=== PATIENT | female | born 1990 | race Caucasian/White ===

== ENCOUNTER 2024-08-02 16:38 | Emergency (ER) | payer OTHER, SELFPAY ==
[2024-08-02 17:01] VITALS: BP 128/79; PULSE 65; RESP 16; TEMP 37; O2SAT 100; BMI 20.7
--- NOTE | 2024-08-02 20:38 | ED.HEATRA ---
HPI - Head Injury General Chief complaint: Head Injury Stated complaint: Head injury on Thursday sent by JOSE Portillo Time Seen by Provider: 08/02/24 20:16 Source: patient Mode of arrival: Ambulatory History of Present Illness HPI Narrative: 34-year-old female with previous history of concussion (required several months of concussion rehab) presents by private vehicle from home for right-sided scalp pain and neck pain after head injury 3 days ago. Patient states that she was bending over to put groceries in her Fridge when her dogs marked, starting her. She went to straighten up to see what the dogs barking out when she struck her head against the freezer door. She denies loss of consciousness, denies use of blood thinners. She states she has had persistent low-grade headache and nausea since her injury. She called her nursing advice line today and she was referred to the emergency department for repeat evaluation. Has been taking Advil and Excedrin with moderate relief of headache. Denies vision changes, neck stiffness, worst headache of life, other complaints at this time Related Data Previous Rx's Medication Instructions Recorded methocarbamol 500 mg tablet 500 mg PO TID #30 tabs 08/02/24 ondansetron 4 mg disintegrating 4 mg PO Q8H PRN nausea and 08/02/24 tablet vomiting #30 tabs Allergies Allergy/AdvReac Type Severity Reaction Status Date / Time No Known Drug Allergies Allergy Verified 08/02/24 17:06 Patient History Social History Smoking Status: Never smoker Smoking Status: Never smoker Substance Use Type: does not use Exam Initial Vital Signs Initial Vital Signs: Vital Signs Temperature 98.6 F 08/02/24 17:01 Pulse Rate 65 08/02/24 17:01 Respiratory Rate 16 08/02/24 17:01 Blood Pressure 128/79 08/02/24 17:01 Pulse Oximetry 100 08/02/24 17:01 Oxygen Delivery Method Room Air 08/02/24 17:01 Const: Awake, alert, no acute distress, nontoxic appearing HEENT: No step-offs, PERRLA, EOMI, TM normal bilaterally, no midline neck tenderness Cardiac: regular rate, regular rhythm RESP: unlabored, clear bilaterally, no wheezing GI: Soft, nontender, nondistended, no rebound, no guarding Skin: Warm, Dry, intact, no rashes Neuro: AO x3, CN II-XII grossly intact, moves all extremities Course Orders Ordered: Discontinued Medications Cyclobenzaprine HCl (Cyclobenzaprine 10 Mg Prepack) 1 bottle MISC DIRECTED ONE Stop: 08/02/24 20:40 Last Admin: 08/02/24 20:43 Dose: 1 bottle Documented By: HNG Vital Signs Vital signs: Vital Signs - 8 hr 08/02/24 17:01 Temperature 98.6 F Pulse Rate 65 Respiratory Rate 16 Blood Pressure 128/79 Pulse Oximetry 100 Oxygen Delivery Method Room Air MDM - Head Injury Differential Diagnosis Differential diagnosis: Likely concussion without loss of consciousness, closed head injury and postconcussion syndrome MDM Narrative Medical decision making narrative: Well-appearing patient with persistent headache after minor head injury 3 days ago. Patient does have previous history of significant concussions requiring rehab. Physical exam is unremarkable, no indications of underlying trauma at this time. [place] and [place] head CT rules negative, no indication for advanced imaging at this time. Patient counseled to continue to take Tylenol and ibuprofen as needed for discomfort, she may apply ice as needed to areas of swelling, and she should utilize gentle stretching exercises for her neck to help with muscle stiffness. PCP follow up advised. Discharge Plan Departure Patient Disposition: Home Clinical Impression: Concussion without loss of consciousness Instructions: DI for Closed Head Injury Activity Restrictions/Additional Instructions: Avoid bright lights, loud noises, screens, any significant mentally stimulating activities until your symptoms improve. Take Tylenol and ibuprofen as needed for pain. You may apply heat or ice as needed to your neck for comfort. A short course of muscle relaxers has been sent to your pharmacy. Avoid alcohol or driving with these medications as they may cause drowsiness. Do not combine the methocarbamol with the cyclobenzaprine. Prescriptions: New ondansetron 4 mg tablet,disintegrating 4 mg PO Q8H PRN (Reason: nausea and vomiting) Qty: 30 0RF methocarbamol 500 mg tablet 500 mg PO TID Qty: 30 0RF Referrals: ProviderBandar [Primary Care Provider] - Stand Alone Forms: Patient Portal/API/Survey, Work Release Note
[2024-08-02 20:43] VITALS: BP 128/86; PULSE 67; RESP 18; O2SAT 99
[2024-08-02] MEDS: CYCLOBENZAPRINE 10 MG PREPACK 1 BOTTLE MISC (20:43)
== END 2024-08-02 20:48 | disposition home or self-care (01) ==
PROVIDERS: Emergency Provider Emergency Medicine
DX: S06.0X0A Concussion without loss of consciousness, initial encounter (principal); M54.2 Cervicalgia; W22.8XXA Striking against or struck by other objects, initial encounter
CPT/HCPCS: 99281; 99283

== ENCOUNTER 2024-08-05 11:43 | Emergency (ER) | payer OTHER, SELFPAY ==
[2024-08-05 11:47] VITALS: BP 124/74; PULSE 66; RESP 12; TEMP 36.4; O2SAT 99; BMI 20.7
[2024-08-05 12:32] LABS: Add Manual Diff / Slide Review NO; Basophils Absolute Auto 0 /uL (0-100); Basophils Percent Auto 0.8 % (0-2); Eosinophils Absolute Auto 300 /uL (0-450); Eosinophils Percent Auto 5.6 % (2-4); Hematocrit 39.6 % (36-46); Hemoglobin 13.4 g/dL (12.0-16.0); Lymphocytes Absolute Auto 1100 /uL (1100-4500); Mean Corpuscular HGB Conc 33.9 % (30-36); Mean Corpuscular Volume 94.6 fL (80-100); Monocytes Absolute Auto 300 /uL (0-900); Monocytes Percent Auto 7.7 % (3-14); Neutrophils Absolute Auto 2800 /uL (1500-7000); Neutrophils Percent Auto 60.9 % (50-75); Platelet Count 287 X10^3/uL (150-400); Red Blood Cell Count 4.19 X10^6/uL (4.0-5.2); Red Cell Distribution Width 13.2 % (11.6-14.8); White Blood Cell Count 4.6 X10^3/uL (4.5-11.0)
[2024-08-05 12:43] LABS: Alanine Aminotransferase 17 IU/L (<35); Albumin 4.6 g/dL (3.5-5.0); Albumin Globulin Ratio 1.6 (1.0-2.8); Alkaline Phosphatase 56 U/L (38-126); Aspartate Aminotransferase 26 IU/L (14-36); BUN Creatinine Ratio 6.8 (6-22); Bilirubin Total 0.9 mg/dL (0.2-1.3); Blood Urea Nitrogen 5 mg/dL (7-17); Calcium 9.1 mg/dL (8.4-10.2); Carbon Dioxide 25 mmol/L (22-32); Chloride 106 mmol/L (98-107); Estimated Glomerular Filt Rate > 60 mL/min (>60); Globulin 2.9 g/dL (1.7-4.1); Glucose 98 mg/dL (70-100); HEMOLYSIS < 15 (0-50); Potassium 3.7 mmol/L (3.4-5.1); Sodium 139 mmol/L (137-145); Total Protein 7.5 g/dL (6.3-8.2)
--- NOTE | 2024-08-05 12:55 | ED.RECABL ---
HPI - Recheck/Abnormal Lab/Rx <Danish Hicks PA-C - Last Filed: 08/05/24 13:07> General Chief Complaint: Recheck/Abnormal Lab/Rx Stated Complaint: tingling/numbness on both feet/hands Time Seen by Provider: 08/05/24 11:48 Source: patient Mode of arrival: Ambulatory History of Present Illness HPI narrative: This patient is an otherwise healthy 5 seen at this facility 2-3 days ago after her contusing her scalp when she was startled by her dogs. She apparently contused the superior aspect of her scalp on a drawer at home. There was no LOC/AMS, dysphagia, blurred vision, neck pain, chest pain or shortness of breath. Apparently, the patient has been experiencing subjective paresthesias to the feet and hands. This apparently had an onset of yesterday. No treatments have been tried for this. 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 Patient also denies night sweats, fever, chills or recent illness. The patient apparently had a remote C3-5 fracture approximately 16 years ago which required, ?concussion therapy ?and the patient is possibly experiencing signs and symptoms of anxiety related to that previous traumatic injury. Related Data Previous Rx's Medication Instructions Recorded methocarbamol 500 mg tablet 500 mg PO TID #30 tabs 08/02/24 ondansetron 4 mg disintegrating 4 mg PO Q8H PRN nausea and 08/02/24 tablet vomiting #30 tabs Allergies Allergy/AdvReac Type Severity Reaction Status Date / Time No Known Drug Allergies Allergy Verified 08/02/24 17:06 Review of Systems <Danish Hicks PA-C - Last Filed: 08/05/24 13:07> Review of Systems Narrative: General: See HPI Neuro: See HPI All other review of systems have been reviewed and are ultimately negative unless otherwise stated in the HPI Patient History <Danish Hicks PA-C - Last Filed: 08/05/24 13:07> Social History Smoking Status: Never smoker Smoking Status: Never smoker alcohol intake frequency: holidays/special occasions only Substance Use Type: does not use Exam <Danish Hicks PA-C - Last Filed: 08/05/24 13:07> Initial Vital Signs Initial Vital Signs: Vital Signs Temperature 97.5 F L 08/05/24 11:47 Pulse Rate 66 08/05/24 11:47 Respiratory Rate 12 08/05/24 11:47 Blood Pressure 124/74 08/05/24 11:47 Pulse Oximetry 99 08/05/24 11:47 Oxygen Delivery Method Room Air 08/05/24 11:47 Const General: cooperative, healthy appearing, comfortable, well developed and well groomed Nutritional Appearance: well nourished [facility] Head: normal to inspection, normocephalic and atraumatic Ears: hearing grossly normal bilaterally, external ears normal, TM's normal bilaterally and EAC's normal Nose: external nose normal and nares normal Face and sinus: normal facial exam and face symmetric Mouth: oral mucosae normal, lip normal and tongue normal Throat: posterior oropharynx normal Eyes General: Yes appearance normal, both eyes and all related structures Visual Bell: normal visual bell by confrontation Alignment and Position: alignment normal and position normal Periorbital: periorbital findings normal Eyelids: eyelids normal Conjunctivae: conjunctivae normal Sclera: sclerae normal Cornea: corneas normal Pupils: PERRL, normal by confrontation and accommodation normal EOM: EOM intact bilaterally Neck Neck: normal visual inspection, full ROM, no meningeal signs, trachea midline and supple Resp Effort & Inspection: normal respiratory effort and able to speak in complete sentences Auscultation: clear to auscultation bilaterally Cardio Rate: regular rate Rhythm: regular rhythm Heart Sounds: S1 normal and S2 normal Back/Spine/Pelvis Back: normal to inspection, back tenderness and crepitance Cervical Spine: normal cervical lordosis and cervical ROM normal Thoracic/Lumbar Spine: thoracic and lumbar spine normal to inspection and thoraco-lumbar ROM normal Skin General: no rashes or lesions noted, elasticity normal and turgor normal Neuro General: patient alert, patient awake, patient oriented x3, gait normal, moves all extremities and CN's II-XI intact bilaterally Speech: speech normal Extrem General: normal to inspection, full ROM, capillary refill normal, normal exam except as noted, no joint enlargement, no clubbing, cyanosis or edema and no pedal edema Psych Appearance: grossly normal and well kempt Mental Status: mental status grossly normal Speech and Movement: speech and movement normal Mood: congruent mood Affect: normal affect Attitude: cooperative Thought Process: normal Thought Content: normal Judgment: judgment good <Pantera Chávez DO - Last Filed: 08/05/24 13:53> Initial Vital Signs Initial Vital Signs: Vital Signs Temperature 97.5 F L 08/05/24 11:47 Pulse Rate 66 08/05/24 11:47 Respiratory Rate 12 08/05/24 11:47 Blood Pressure 124/74 08/05/24 11:47 Pulse Oximetry 99 08/05/24 11:47 Oxygen Delivery Method Room Air 08/05/24 11:47 Course <Danish Hicks PA-C - Last Filed: 08/05/24 13:07> Course Course Narrative: Patient was seen and examined. She had labs ordered which included a CBC, CMP magnesium level. None of these revealed any gross abnormalities. And notified the patient of the results and she was then prepped for discharge home. In conclusion, I do not believe this is hypomagnesemia, hypokalemia or any other metabolic disturbance. This could be stress versus anxiety related from her remote injury 16 years ago. The patient has minimal trauma does not require a CT scan or higher level imaging. She would benefit from outpatient follow up from Neurology if this continues. I do not believe this is a skull fracture, cervical fracture or intracranial bleed. Patient understands the treatment plan. There were no additional questions at the time of discharge and she will follow up as requested Orders Ordered: ED Orders 08/05/24 12:17 CBC Auto Diff [Complete Blood Count AUTO DIFF] Stat CMP [Comprehensive Metabolic Panel] Stat Magnesium Stat Vital Signs Vital signs: Vital Signs - 8 hr 08/05/24 11:47 08/05/24 13:26 Temperature 97.5 F L Pulse Rate 66 Respiratory Rate 12 17 Blood Pressure 124/74 Pulse Oximetry 99 Oxygen Delivery Method Room Air <Pantera Chávez DO - Last Filed: 08/05/24 13:53> Orders Ordered: ED Orders 08/05/24 12:17 CBC Auto Diff [Complete Blood Count AUTO DIFF] Stat CMP [Comprehensive Metabolic Panel] Stat Magnesium Stat Vital Signs Vital signs: Vital Signs - 8 hr 08/05/24 11:47 08/05/24 13:26 Temperature 97.5 F L Pulse Rate 66 Respiratory Rate 12 17 Blood Pressure 124/74 Pulse Oximetry 99 Oxygen Delivery Method Room Air MDM - Recheck/Abnormal Lab/Rx <Danish Hicks PA-C - Last Filed: 08/05/24 13:07> Differential Diagnosis Differential diagnosis: Likely other (See above) Medical Records Attestation: I reviewed the patient's medical records. Lab Data Attestation: I reviewed the patient's lab results. 08/05/24 12:17 08/05/24 12:17 Labs: Lab Results 08/05/24 Range/Units 12:17 WBC 4.6 (4.5-11.0) X10^3/uL RBC 4.19 (4.0-5.2) X10^6/uL Hgb 13.4 (12.0-16.0) g/dL Hct 39.6 (36-46) % MCV 94.6 (80-100) fL MCH 32.0 (26-34) PG MCHC 33.9 (30-36) % RDW 13.2 (11.6-14.8) % Plt Count 287 (150-400) X10^3/uL Neut % (Auto) 60.9 (50-75) % Lymph % (Auto) 25.0 (25-40) % [place] % (Auto) 7.7 (3-14) % Eos % (Auto) 5.6 H (2-4) % Baso % (Auto) 0.8 (0-2) % Neut # (Auto) 2800 (7195-3225) /uL Lymph # (Auto) 1100 (2057-4028) /uL [place] # (Auto) 300 (0-900) /uL Eos # (Auto) 300 (0-450) /uL Baso # (Auto) 0 (0-100) /uL Sodium 139 (137-145) mmol/L Potassium 3.7 (3.4-5.1) mmol/L Chloride 106 (98-107) mmol/L Carbon Dioxide 25 (22-32) mmol/L BUN 5 L (7-17) mg/dL Creatinine 0.73 (0.52-1.04) mg/dL Estimated GFR > 60 (>60) mL/min BUN/Creatinine Ratio 6.8 (6-22) Glucose 98 (70-100) mg/dL Calcium 9.1 (8.4-10.2) mg/dL Magnesium 2.0 (1.6-2.3) mg/dL Total Bilirubin 0.9 (0.2-1.3) mg/dL AST 26 (14-36) IU/L ALT 17 (<35) IU/L Alkaline Phosphatase 56 (38-126) U/L Total Protein 7.5 (6.3-8.2) g/dL Albumin 4.6 (3.5-5.0) g/dL Globulin 2.9 (1.7-4.1) g/dL Albumin/Globulin Ratio 1.6 (1.0-2.8) <Pantera Chávez, - Last Filed: 08/05/24 13:53> Lab Data Labs: Lab Results 08/05/24 Range/Units 12:17 WBC 4.6 (4.5-11.0) X10^3/uL RBC 4.19 (4.0-5.2) X10^6/uL Hgb 13.4 (12.0-16.0) g/dL Hct 39.6 (36-46) % MCV 94.6 (80-100) fL MCH 32.0 (26-34) PG MCHC 33.9 (30-36) % RDW 13.2 (11.6-14.8) % Plt Count 287 (150-400) X10^3/uL Neut % (Auto) 60.9 (50-75) % Lymph % (Auto) 25.0 (25-40) % [place] % (Auto) 7.7 (3-14) % Eos % (Auto) 5.6 H (2-4) % Baso % (Auto) 0.8 (0-2) % Neut # (Auto) 2800 (8461-4249) /uL Lymph # (Auto) 1100 (7164-3313) /uL [place] # (Auto) 300 (0-900) /uL Eos # (Auto) 300 (0-450) /uL Baso # (Auto) 0 (0-100) /uL Sodium 139 (137-145) mmol/L Potassium 3.7 (3.4-5.1) mmol/L Chloride 106 (98-107) mmol/L Carbon Dioxide 25 (22-32) mmol/L BUN 5 L (7-17) mg/dL Creatinine 0.73 (0.52-1.04) mg/dL Estimated GFR > 60 (>60) mL/min BUN/Creatinine Ratio 6.8 (6-22) Glucose 98 (70-100) mg/dL Calcium 9.1 (8.4-10.2) mg/dL Magnesium 2.0 (1.6-2.3) mg/dL Total Bilirubin 0.9 (0.2-1.3) mg/dL AST 26 (14-36) IU/L ALT 17 (<35) IU/L Alkaline Phosphatase 56 (38-126) U/L Total Protein 7.5 (6.3-8.2) g/dL Albumin 4.6 (3.5-5.0) g/dL Globulin 2.9 (1.7-4.1) g/dL Albumin/Globulin Ratio 1.6 (1.0-2.8) Discharge Plan Departure Patient Disposition: Home Clinical Impression: Complaint of paresthesia Activity Restrictions/Additional Instructions: Your labs were all within normal limits at today's ER visit You may require evaluation by a neurologist on an outpatient basis Return here for any new, emergent concerns or if you worsen in any way Prescriptions: No Action ondansetron 4 mg tablet,disintegrating 4 mg PO Q8H PRN (Reason: nausea and vomiting) Qty: 30 0RF methocarbamol 500 mg tablet 500 mg PO TID Qty: 30 0RF Referrals: Provider,Bandar GARCIA [Primary Care Provider] - Stand Alone Forms: Patient Portal/API/Survey, Work Release Note ED Sign-out <Pantera Chávez DO - Last Filed: 08/05/24 13:53> Cosign ED Attending Cosdipakature Attestation: Dr Chávez Co-Sign Statement: I was available for consultation during this patient's emergency department visit. This chart is signed by myself for administrative purposes only. I did not have direct contact with this patient during this visit. They were seen independently by the APC.
[2024-08-05 13:26] VITALS: RESP 17
== END 2024-08-05 13:15 | disposition home or self-care (01) ==
PROVIDERS: Emergency Provider Physician Assistant
DX: R20.2 Paresthesia of skin (principal)
CPT/HCPCS: 80053; 83735; 85025; 99281; 99283

== ENCOUNTER 2025-07-07 08:10 | Observation (INO) | payer OTHER, SELFPAY ==
[2025-07-07] VITALS (23 sets, daily range): BP systolic 112–137; BP diastolic 62–89; PULSE 61–100; RESP 14–33; TEMP 36.1–36.8; O2SAT 96–100; BMI 23.8; BMI 20.5
--- NOTE | 2025-07-07 08:20 | DI.RAD.S_ITS ---
PROCEDURE: XR CHEST 1V INDICATIONS: short of breath TECHNIQUE: One view of the chest was acquired. COMPARISON: None. FINDINGS: Surgical changes and devices: None. Lungs and pleura: Lungs are clear. No pleural effusions or pneumothorax. Mediastinum: Mediastinal contours appear normal. Heart size is normal. Bones and chest wall: No suspicious bony lesions. Overlying soft tissues appear unremarkable. IMPRESSION: No acute cardiopulmonary abnormality is seen. Dictated by: Jonah Osullivan M.D. on 07/07/2025 at 8:55 Approved by: Jonah Osullivan M.D. on 07/07/2025 at 8:55
--- NOTE | 2025-07-07 08:23 | ED.SOB ---
HPI - SOB/Dyspnea General Chief Complaint: Upper Respiratory Symptoms Stated Complaint: Sinus KU, sore throat Time Seen by Provider: 07/07/25 08:13 History of Present Illness HPI Narrative: Patient is a 35-year-old female healthy presenting today with difficulty breathing. She reports that she has had upper respiratory like symptoms she has had headache she initially had sore throat without went away. Today she is in the shower when suddenly face she felt like she could not take a deep breath. She has some inspiratory stridor. O2 sat is within normal limits. She sounds like her voice is hoarse. She has only been taking [id number] medications for cold. She is otherwise healthy Related Data Previous Rx's ?Medication ?Instructions ?Recorded methocarbamol 500 mg tablet 500 mg PO TID #30 tabs 08/02/24 ondansetron 4 mg disintegrating 4 mg PO Q8H PRN nausea and 08/02/24 tablet vomiting #30 tabs Allergies Allergy/AdvReac Type Severity Reaction Status Date / Time cefaclor (From [facility]) Allergy Unknown Verified 07/07/25 08:23 Patient History alcohol intake frequency: holidays/special occasions only Exam Initial Vital Signs Initial Vital Signs: Vital Signs Pulse Rate 87 07/07/25 08:16 Respiratory Rate 24 07/07/25 08:16 Blood Pressure 137/84 07/07/25 08:16 Pulse Oximetry 100 07/07/25 08:16 GENERAL: Alert 35-year-old female HEENT: Head atraumatic,EOMI, pupils reactive, face symmetric, moist mucous membranes PHARYNX: No uvula swelling or deviation no tonsil enlargement airway is patent managing her own secretions CARDIOVASCULAR: Regular rate and rhythm without murmurs, rubs or gallops. RESPIRATORY: Breath sounds clear and equal inspiratory stridor no wheezing rales or rhonchi voices hoarse ABDOMEN: Soft, nontender. Normoactive bowel sounds all 4 quadrants. No guarding or rebound. EXTREMITIES: Normal range of motion, no clubbing or edema. Neurovascularly intact NEUROLOGICAL: Alert and oriented x4.Normal gait and speech. Cranial nerves II through XII grossly intact. SKIN: Warm, dry, no laceration, no petechiae, no rashes or lesions. Course Orders Ordered: ED Orders 07/07/25 08:20 Chest [XR chest 1V] Stat 07/07/25 08:25 CBC Auto Diff [Complete Blood Count AUTO DIFF] Stat CMP [Comprehensive Metabolic Panel] Stat Lactate (Lactic Acid) Stat Test Serum,Qual Stat 07/07/25 08:53 CT soft tissue neck w con Stat Albuterol (Albuterol 2.5 Mg/3 Ml Neb (Adult)) 2.5 mg INH [id number] PRN PRN Reason: Shortness Of Breath Last Admin: 07/07/25 12:19 Dose: 2.5 mg Documented By: JANETTE Discontinued Medications Dexamethasone (Dexamethasone 10 Mg/Ml Vial) 10 mg IV NOW ONE Stop: 07/07/25 08:20 Last Admin: 07/07/25 08:37 Dose: 10 mg Documented By: COLLETTE Epinephrine (Racepinephrine 0.5 Ml Neb) 0.5 ml INH NOW ONE Stop: 07/07/25 08:20 Last Admin: 07/07/25 08:26 Dose: 0.5 ml Documented By: JANETTE Epinephrine (Racepinephrine 0.5 Ml Neb) 0.5 ml INH NOW ONE Stop: 07/07/25 11:41 Last Admin: 07/07/25 11:43 Dose: 0.5 ml Documented By: JANETTE Sodium Chloride (Normal Saline 0.9%) 1,000 mls @ 1,000 mls/hr IV BOLUS ONE Stop: 07/07/25 09:18 Last Admin: 07/07/25 08:37 Dose: 1,000 mls/hr Documented By: COLLETTE Vital Signs Vital signs: Vital Signs - 8 hr 07/07/25 08:16 07/07/25 08:16 07/07/25 08:21 Temperature 98.2 F Pulse Rate 87 88 Respiratory Rate 24 20 Blood Pressure 137/84 137/84 Pulse Oximetry 100 100 Oxygen Delivery Method Room Air Fraction of Inspired Oxygen 07/07/25 08:30 07/07/25 08:30 07/07/25 09:06 Temperature Pulse Rate 93 H 66 Respiratory Rate 26 H 33 H Blood Pressure 127/71 Pulse Oximetry 100 Oxygen Delivery Method Fraction of Inspired Oxygen 07/07/25 09:07 07/07/25 09:07 07/07/25 09:30 Temperature Pulse Rate 72 63 Respiratory Rate 19 23 Blood Pressure 131/89 Pulse Oximetry 98 100 Oxygen Delivery Method Fraction of Inspired Oxygen 07/07/25 09:30 07/07/25 10:00 07/07/25 10:00 Temperature Pulse Rate 65 Respiratory Rate 28 H Blood Pressure 122/77 117/73 Pulse Oximetry 96 Oxygen Delivery Method Fraction of Inspired Oxygen 07/07/25 10:30 07/07/25 10:30 07/07/25 11:00 Temperature Pulse Rate 74 65 Respiratory Rate 18 14 Blood Pressure 126/78 Pulse Oximetry 97 100 Oxygen Delivery Method Fraction of Inspired Oxygen 07/07/25 11:00 07/07/25 11:30 07/07/25 11:30 Temperature Pulse Rate 61 Respiratory Rate 16 Blood Pressure 127/79 137/77 Pulse Oximetry 100 Oxygen Delivery Method Fraction of Inspired Oxygen 07/07/25 12:00 07/07/25 12:00 07/07/25 12:20 Temperature Pulse Rate 85 97 H Respiratory Rate 24 16 Blood Pressure 132/72 Pulse Oximetry 100 98 Oxygen Delivery Method Room Air Fraction of Inspired Oxygen 21 07/07/25 12:30 07/07/25 12:30 07/07/25 13:00 Temperature Pulse Rate 100 H 97 H Respiratory Rate 17 21 Blood Pressure 128/70 Pulse Oximetry 99 99 Oxygen Delivery Method Fraction of Inspired Oxygen 07/07/25 13:00 07/07/25 13:30 07/07/25 13:30 Temperature Pulse Rate 89 Respiratory Rate 14 Blood Pressure 125/67 127/65 Pulse Oximetry 99 Oxygen Delivery Method Fraction of Inspired Oxygen 07/07/25 14:00 07/07/25 14:00 07/07/25 14:30 Temperature Pulse Rate 76 Respiratory Rate 15 Blood Pressure 123/62 120/75 Pulse Oximetry 98 Oxygen Delivery Method Fraction of Inspired Oxygen 07/07/25 14:30 07/07/25 15:00 07/07/25 15:00 Temperature Pulse Rate 85 74 Respiratory Rate 15 16 Blood Pressure 119/69 Pulse Oximetry 98 98 Oxygen Delivery Method Fraction of Inspired Oxygen MDM - SOB/Dyspnea Lab Data 07/07/25 08:25 07/07/25 08:25 Labs: Lab Results 07/07/25 Range/Units 08:25 WBC 5.4 (4.5-11.0) X10^3/uL RBC 4.18 (4.0-5.2) X10^6/uL Hgb 13.4 (12.0-16.0) g/dL Hct 38.6 (36-46) % MCV 92.2 (80-100) fL MCH 31.9 (26-34) PG MCHC 34.6 (30-36) % RDW 12.5 (11.6-14.8) % Plt Count 246 (150-400) X10^3/uL Neut % (Auto) 69.6 (50-75) % Lymph % (Auto) 18.4 L (25-40) % [place] % (Auto) 6.6 (3-14) % Eos % (Auto) 4.8 H (2-4) % Baso % (Auto) 0.6 (0-2) % Neut # (Auto) 3700 (0598-9422) /uL Lymph # (Auto) 1000 L (2049-9659) /uL [place] # (Auto) 400 (0-900) /uL Eos # (Auto) 300 (0-450) /uL Baso # (Auto) 0 (0-100) /uL Sodium 138 (137-145) mmol/L Potassium 3.5 (3.4-5.1) mmol/L Chloride 104 (98-107) mmol/L Carbon Dioxide 24 (22-32) mmol/L BUN 5 L (7-17) mg/dL Creatinine 0.77 (0.52-1.04) mg/dL Estimated GFR > 60 (>60) mL/min BUN/Creatinine Ratio 6.5 (6-22) Glucose 91 (70-99) mg/dL Lactate 1.2 (0.7-2.1) mmol/L Calcium 8.6 (8.4-10.2) mg/dL Total Bilirubin 0.9 (0.2-1.3) mg/dL AST 23 (14-36) IU/L ALT 15 (<35) IU/L Alkaline Phosphatase 60 (38-126) U/L Total Protein 7.5 (6.3-8.2) g/dL Albumin 4.5 (3.5-5.0) g/dL Globulin 3.0 (1.7-4.1) g/dL Albumin/Globulin Ratio 1.5 (1.0-2.8) Serum , Qual Negative (Negative) MDM Narrative Medical decision making narrative: MDM CC: Difficulty breathing Complicating co-morbidities: Healthy female Data collected from: Patient and EMS Medical records reviewed: Previous ED visit for paresthesias Differential considered: Croup or dysfunction Exam documented above, pertinent findings include: Alert 35-year-old female with inspiratory stridor, no respiratory distress she has a hoarse voice no evidence of peritonsillar abscess or retropharyngeal abscess no tachypnea Lab Test results independently reviewed as above. Pertinent findings: CBC no leukocytosis no anemia CMP no electrolyte abnormality no KAYDEN Independently reviewed EKG as above Imaging studies independently reviewed: Chest x-ray no acute cardiopulmonary process CT soft tissue neck thickening of muco periosteal paranasal sinuses, airway patent Consultations: [ ] Treatments: Dexamethasone 10 Racemic epi and cool mist Re-evaluations: After racemic epi patient had minimal improvement but she did say she can breathe better out of her nose [id number]-patient reporting improvement but still having stridor but she feels like she is doing better 11:15 patient reassessed she got up to use the restroom got more stridor, replaced on cool mist she feels like she is doing better 1300 patient sleeping and still has stridor but is not hypoxic. Received another dose of racemic epi. Discussion: Patient healthy 35-year-old female with upper respiratory like symptoms ongoing for about a week. This morning woke up feels like areas not quite getting in has some upper respiratory stridor, lung sounds are clear no tachypnea. No evidence of oral airway obstruction there is no uvula swelling or deviation no tonsillar enlargement. She has no leukocytosis she is afebrile blood work is overall reassuring. Patient is overall improving however stridor still is appreciated. She does not have any difficulty breathing or change in O2 sat. Dr. Cortes agrees to observation Discharge Plan Departure Patient Disposition: Admitted as Observation Clinical Impression: Stridor Admit Date/Time: 07/07/25 15:32 Admit Provider: John Cortes
[2025-07-07] MEDS: RACEPINEPHRINE 0.5 ML NEB INH ×3 (08:26→18:17)
[2025-07-07 08:37] LABS: Add Manual Diff / Slide Review NO; Hematocrit 38.6 % (36-46); Hemoglobin 13.4 g/dL (12.0-16.0); Lymphocytes Absolute Auto 1000 /uL (1100-4500); Mean Corpuscular HGB Conc 34.6 % (30-36); Mean Corpuscular Hemoglobin 31.9 PG (26-34); Mean Corpuscular Volume 92.2 fL (80-100); Platelet Count 246 X10^3/uL (150-400)
[2025-07-07] MEDS: SODIUM CHLORIDE 0.9% 1,000 ML 1000 ML IV (08:37)
[2025-07-07 08:49] LABS: Alanine Aminotransferase 15 IU/L (<35); Albumin 4.5 g/dL (3.5-5.0); Albumin Globulin Ratio 1.5 (1.0-2.8); Alkaline Phosphatase 60 U/L (38-126); Blood Urea Nitrogen 5 mg/dL (7-17); Calcium 8.6 mg/dL (8.4-10.2); Carbon Dioxide 24 mmol/L (22-32); Chloride 104 mmol/L (98-107); Estimated Glomerular Filt Rate > 60 mL/min (>60); Globulin 3.0 g/dL (1.7-4.1); Glucose 91 mg/dL (70-99); HEMOLYSIS < 15 (0-50); Lactate (Lactic Acid) 1.2 mmol/L (0.7-2.1); Potassium 3.5 mmol/L (3.4-5.1); Sodium 138 mmol/L (137-145); Total Protein 7.5 g/dL (6.3-8.2)
--- NOTE | 2025-07-07 08:53 | DI.CT.S_ITS ---
PROCEDURE: CT SOFT TISSUE NECK W CON INDICATIONS: stridor TECHNIQUE: After the administration of intravenous contrast, 3.0 mm axial sections acquired from the sella to the aortic arch. Additional oblique axial 3.0 mm sections acquired through the pharynx. 3 mm thick coronal and sagittal reformats were generated. For radiation dose reduction, the following was used: automated exposure control. COMPARISON: None. FINDINGS: Image quality: Excellent. Some images are limited by beam hardening or other artifacts. Lymph nodes: Numerous mildly enlarged bilateral level 2, level 3 and posterior triangle lymph nodes commonly reactive/inflammatory the largest on the right measures up to 8 mm short axis. Vessels: Visualized vasculature appears patent. Neck spaces: Mildly prominent nasopharyngeal soft tissues, symmetric commonly reactive/inflammatory., The oropharynx, and pharynx demonstrate no mucosal lesions. The vocal cords, false vocal cords, pyriform sinuses, epiglottis, vallecula, and tongue base all appear normal. Extramucosal spaces appear unremarkable. Glands: The parotid and submandibular glands appear normal. Thyroid gland is borderline enlarged without focal nodule. Miscellaneous: Visualized brain and orbits appear normal. Lung apices appear clear. Superficial soft tissues appear normal. Bones: Mild mucoperiosteal thickening bilateral ethmoid, maxillary sinuses measuring up to 5 mm thickness. Hypoplastic left frontal sinuses. Right frontal and sphenoid sinuses are relatively clear. Mastoid air cells and middle ear cavities normal. No suspicious bony lesions. Visualized sinuses and mastoids appear unremarkable. IMPRESSION: Mild mucoperiosteal thickening paranasal sinuses. Prominent nasopharyngeal soft tissues and mildly enlarged neck lymph nodes bilaterally commonly reactive/inflammatory. No abscess Dictated by: Lebron Saleh M.D. on 07/07/2025 at 9:39 Approved by: Lebron Saleh M.D. on 07/07/2025 at 9:43
[2025-07-07 09:04] LABS: Pregnancy Test Serum,Qual Negative (Negative)
--- NOTE | 2025-07-07 11:01 | PC.NURSE ---
patient having worsened stridor after ambulating to bathroom, provider aware and cool mist nebulizer restarted
--- NOTE | 2025-07-07 11:42 | PC.NURSE ---
patient having worsened stridor provider aware and racemic neb ordered
[2025-07-07] MEDS: ALBUTEROL 2.5 MG/3 ML NEB (ADULT) INH (12:19)
--- NOTE | 2025-07-07 16:18 | PC.NURSE ---
solomon and report to yoli
--- NOTE | 2025-07-07 16:57 | PM.HP.1 ---
History of Present Illness History of Present Illness Date Patient Seen: 07/07/25 Time Patient Seen: 16:57 Chief complaint: Sinus KU, sore throat Narrative: This is a 35-year-old female, active duty [employer] with a history of Sylvester's hypothyroidism who presents with 7 days of routine/mild upper respiratory symptoms of sore throat and runny nose that progressed to shortness of breath this morning. When she presented to the ED she had severe stridor which she says is 80% better after treatment with dexamethasone and racemic epinephrine. She has not been hypoxic. Her flu and COVID tests are negative. A full respiratory panel is pending. She was at [facility] 1 week ago when she became ill. No other known contacts. She has no history of asthma, epiglottitis or stridor. She has had no rash, fever or cough. Chest x-ray is normal. CT neck soft tissue shows prominent nasopharyngeal soft tissues and mildly enlarged lack lymph nodes bilaterally without abscess. Assessment and plan: Acute upper respiratory infection with severe stridor, present on admission. Active. -likely has airway narrowing secondary to lymph node swelling in the neck. Possible epiglottitis. -continue dexamethasone 6 mg IV q.6 hours and racemic epinephrine as needed. -continuous pulse oximetry -full respiratory panel pending SCD for DVT prevention [facility] Medical History (Updated 07/07/25 @ 18:04 by John Cortes MD) Hypothyroidism Sylvester's thyroiditis Surgical History (Updated 07/07/25 @ 18:02 by John Cortes MD) H/O knee surgery H/O shoulder surgery Family History (Updated 07/07/25 @ 18:04 by John Cortes MD) Father Hyperlipidemia Hypertension Mother Hypothyroidism Breast cancer Thyroid cancer Social History (Updated 07/07/25 @ 18:05 by John Cortes MD) household members: none alcohol intake: current Comment: Occasional alcohol use Meds Home Medications and Allergies Home Medications ?Medication ?Instructions ?Recorded ?Confirmed ?Type levothyroxine 50 mcg tablet 50 mcg PO DAILY 07/07/25 07/07/25 History (Synthroid) Allergies Allergy/AdvReac Type Severity Reaction Status Date / Time cefaclor (From [facility]) Allergy Unknown Verified 07/07/25 08:23 Review of Systems Review of Systems Narrative: Positive for shortness of breath, runny nose, sore throat and wheezing. Negative for coughing, fevers, chills, sweats, abdominal pain, chest pain, neck pain, bleeding, rash, dysuria. Exam Vital Signs (past 8 hours): - 07/07/25 09:06 07/07/25 09:07 07/07/25 09:07 Temperature Pulse Rate 66 72 Respiratory Rate 33 H 19 Blood Pressure 131/89 Pulse Oximetry 98 Oxygen Delivery Method Fraction of Inspired Oxygen 07/07/25 09:30 07/07/25 09:30 07/07/25 10:00 Temperature Pulse Rate 63 Respiratory Rate 23 Blood Pressure 122/77 117/73 Pulse Oximetry 100 Oxygen Delivery Method Fraction of Inspired Oxygen 07/07/25 10:00 07/07/25 10:30 07/07/25 10:30 Temperature Pulse Rate 65 74 Respiratory Rate 28 H 18 Blood Pressure 126/78 Pulse Oximetry 96 97 Oxygen Delivery Method Fraction of Inspired Oxygen 07/07/25 11:00 07/07/25 11:00 07/07/25 11:30 Temperature Pulse Rate 65 61 Respiratory Rate 14 16 Blood Pressure 127/79 Pulse Oximetry 100 100 Oxygen Delivery Method Fraction of Inspired Oxygen 07/07/25 11:30 07/07/25 12:00 07/07/25 12:00 Temperature Pulse Rate 85 Respiratory Rate 24 Blood Pressure 137/77 132/72 Pulse Oximetry 100 Oxygen Delivery Method Fraction of Inspired Oxygen 07/07/25 12:20 07/07/25 12:30 07/07/25 12:30 Temperature Pulse Rate 97 H 100 H Respiratory Rate 16 17 Blood Pressure 128/70 Pulse Oximetry 98 99 Oxygen Delivery Method Room Air Fraction of Inspired Oxygen 21 07/07/25 13:00 07/07/25 13:00 07/07/25 13:30 Temperature Pulse Rate 97 H 89 Respiratory Rate 21 14 Blood Pressure 125/67 Pulse Oximetry 99 99 Oxygen Delivery Method Fraction of Inspired Oxygen 07/07/25 13:30 07/07/25 14:00 07/07/25 14:00 Temperature Pulse Rate 76 Respiratory Rate 15 Blood Pressure 127/65 123/62 Pulse Oximetry 98 Oxygen Delivery Method Fraction of Inspired Oxygen 07/07/25 14:30 07/07/25 14:30 07/07/25 15:00 Temperature Pulse Rate 85 74 Respiratory Rate 15 16 Blood Pressure 120/75 Pulse Oximetry 98 98 Oxygen Delivery Method Fraction of Inspired Oxygen 07/07/25 15:00 07/07/25 15:30 07/07/25 15:30 Temperature Pulse Rate 76 Respiratory Rate 24 Blood Pressure 119/69 112/67 Pulse Oximetry 98 Oxygen Delivery Method Fraction of Inspired Oxygen 07/07/25 16:00 07/07/25 16:00 07/07/25 16:09 Temperature 97.3 F L Pulse Rate 75 80 Respiratory Rate 15 20 Blood Pressure 116/71 121/77 Pulse Oximetry 98 98 Oxygen Delivery Method Fraction of Inspired Oxygen Fraction of Inspired Oxygen 21 SaO2/FiO2 Ratio 466 Oxygen Delivery Method Room Air Narrative Exam Narrative: Alert and oriented x3. Mild distress from inspiratory stridor. (but I feel 80% better) Pupils are equally round and reactive to light and accommodation. Extraocular muscles are intact. Sclerae are pink and nonicteric. Throat looks normal without any posterior pharyngeal or uvular swelling. No redness visible. Bilateral lymph nodes are felt, only mildly tender and small, most prominent at the angle of the jaw. No other lymph nodes are felt in the neck. There is no thyromegaly. JVD is less than 6 cm. No carotid bruits are heard. Heart is regular rate and rhythm without murmur. Lungs are clear to auscultation bilaterally. Abdomen is soft, bowel sounds positive, nontender, no organomegaly. Extremities have no ankle edema. Skin has no rash. Cranial nerves 2-12 test intact. Motor function is 5/5 throughout. There is no tremor. Objective Imaging CT Soft Tissue Neck: Radiologist's impression: IMPRESSION: Mild mucoperiosteal thickening paranasal sinuses. Prominent nasopharyngeal soft tissues and mildly enlarged neck lymph nodes bilaterally commonly reactive/inflammatory. No abscess Labs 07/07/25 08:25 07/07/25 08:25 Labs: Laboratory Results - last 24 hr 07/07/25 08:25 WBC 5.4 RBC 4.18 Hgb 13.4 Hct 38.6 MCV 92.2 MCH 31.9 MCHC 34.6 RDW 12.5 Plt Count 246 Neut % (Auto) 69.6 Lymph % (Auto) 18.4 L [place] % (Auto) 6.6 Eos % (Auto) 4.8 H Baso % (Auto) 0.6 Neut # (Auto) 3700 Lymph # (Auto) 1000 L [place] # (Auto) 400 Eos # (Auto) 300 Baso # (Auto) 0 Sodium 138 Potassium 3.5 Chloride 104 Carbon Dioxide 24 BUN 5 L Creatinine 0.77 Estimated GFR > 60 BUN/Creatinine Ratio 6.5 Glucose 91 Lactate 1.2 Calcium 8.6 Total Bilirubin 0.9 AST 23 ALT 15 Alkaline Phosphatase 60 Total Protein 7.5 Albumin 4.5 Globulin 3.0 Albumin/Globulin Ratio 1.5 Serum , Qual Negative Assessment & Plan Time-Based Coding :: [TOTAL MINUTES] spent with patient and on the chart (including review of chart, obtaining history, exam, reviewing outside data, placing orders, documenting exam and treatment plan, and counseling patient) on [DATE].
[2025-07-07 16:58] LABS: Influenza A - CEPHEID Flu A NEGATIVE (NEGATIVE); Influenza B - CEPHEID Flu B NEGATIVE (NEGATIVE)
[2025-07-07 17:08] LABS: COVID-19 CEPHEID 4-PLEX PCR Negative (Negative)
--- NOTE | 2025-07-07 17:09 | PC.NURSE ---
Pt arrived from ED at 1630, A&Ox4, VSS on RA, strider audible from doorway. C/o 3/10 chest pain/pressure and SOB worse with exertion/talking, breathing is easier through nose. Lung sounds otherwise clear, CMS+ throughout bilaterally, bowel sounds present. Pt oriented to room and call light. Bed in low position, call light within reach.
[2025-07-07 18:44] LABS: Coronavirus NL 63 Not Detected (Not Detect); SARS- CoV-2 Not Detected (Not Detecte)
[2025-07-07] MEDS: SODIUM CHLORIDE 0.9% 1,000 ML 100 ML IV (19:03)
[2025-07-08] VITALS (9 sets, daily range): BP systolic 107–117; BP diastolic 66–75; PULSE 56–71; RESP 16–20; TEMP 35.9–36.3; O2SAT 97–99
[2025-07-08] MEDS: SODIUM CHLORIDE 0.9% 1,000 ML 100 ML IV (04:53)
[2025-07-08] MEDS: CALCIUM CARBONATE 500 MG TAB PO (05:57)
--- NOTE | 2025-07-08 08:38 | CM.DANOTE ---
Initial DCP Assessment Note. Review EMR and PT Interview. Met with patient at bedside to discuss discharge needs.PT is alert x 4 sitting up in bed. No acute distress. Patient lives independently Payor:? Zoila PCP: JOSE Portillo MD Summary & Plan:?35 y/o female arrived to ED c/o sinus pain, cough, and stridor. Admitted OBS, Dx. Stridor. Plan: DC home when improved. Discharge Planning/Care Management CM Discharge Assessment Start: 07/07/25 16:09 Freq: Status: Active Protocol: Document 07/08/25 08:36 (Rec: 07/08/25 08:38 [id number]) Discharge Planning Assessment Assigned Discharge Angelica Hernandez RN CM Residency Program Coordinator Provider JOSE Portillo MD Insurance Advance Directives? No History Provided By Patient,Medical Record Has Patient been No admitted in last 30 days? Prior Living House Arrangements Household Members none Type of Drives own vehicle transporation used prior to admit Independent with ADL Yes 's Is patient alert and Yes oriented? Barriers to No Discharge Discharge Plan Home Transportation Friend Arrangement Referrals Initiated None needed Review Status In Process Please Provide Date 07/08/25 Initial DC Assessment Was Performed Next Review Type Continued Stay Review
--- NOTE | 2025-07-08 09:46 | PM.DS.1 ---
History of Present Illness History of Present Illness Date Patient Seen: 07/08/25 Time Patient Seen: 09:46 Chief complaint: Sinus KU, sore throat Narrative: This is a 35-year-old female, active duty [employer] with a history of Sylvester's hypothyroidism who presents with 7 days of routine/mild upper respiratory symptoms of sore throat and runny nose that progressed to shortness of breath this morning. When she presented to the ED she had severe stridor which she says is 80% better after treatment with dexamethasone and racemic epinephrine. She has not been hypoxic. Her flu and COVID tests are negative. A full respiratory panel is pending. She was at [facility] 1 week ago when she became ill. No other known contacts. She has no history of asthma, epiglottitis or stridor. She has had no rash, fever or cough. Chest x-ray is normal. CT neck soft tissue shows prominent nasopharyngeal soft tissues and mildly enlarged lack lymph nodes bilaterally without abscess. Discharge Providers Provider Date of admission: 07/07/25 15:32 Discharge Date: 07/08/25 Primary care physician: Bandar GARCIA Provider Discharge provider: John Cortes MD Summary Hospital Course Hospital Course: Acute Rhinovirus upper respiratory infection with severe stridor -likely has airway narrowing secondary to lymph node swelling in the neck. Possible epiglottitis. -Responded to dexamethasone 6 mg IV q.6 hours and racemic epinephrine as needed. In summary: Her stridor is much improved this morning. She says the sensation of being able to breathe through her nose has improved. She did not require any additional racemic epinephrine overnight. We reviewed her CT soft tissue neck. Her epiglottis is generous consistent with some localized swelling and she does have mild lordosis at the approximate C3 level which she recalls fracturing at the age of 15 in a backyard football accident, which was so severe that she was hospitalized for several days and had mild hemiparesis. This stridor appears to be a combination of bilateral jaw angle lymphadenopathy from the rhino virus, mild epiglottitis and altered cervical bone anatomy at that level. The lymphadenopathy has diminished on exam today. She will be going home at 5:00 p.m. if the improvements are sustained and continue in the normal direction. She will be on prednisone for 5 more days and will follow up with her PCP. Status at Discharge Cognitive/behavioral status at discharge: at baseline, oriented Functional status at discharge: independent ambulation Overall status at discharge: patient is progressing back to baseline Exam Vital Signs (past 8 hours): - 07/08/25 04:00 07/08/25 05:00 07/08/25 08:00 Temperature 96.9 F L 96.9 F L Pulse Rate 56 L 60 Respiratory Rate 16 18 Blood Pressure 117/69 107/72 Pulse Oximetry 99 97 99 Oxygen Delivery Method Room Air Oxygen Flow Rate 0 0 07/08/25 09:00 Temperature Pulse Rate Respiratory Rate Blood Pressure Pulse Oximetry 99 Oxygen Delivery Method Room Air Oxygen Flow Rate Fraction of Inspired Oxygen 21 SaO2/FiO2 Ratio 466 Oxygen Delivery Method Room Air Oxygen Flow Rate 0 Narrative Exam Narrative: Very mild stridor which actually sounds more like wheezing today. Heart is regular rate and rhythm without murmur. Lungs are clear to auscultation bilaterally. The angle of the jaw lymphadenopathy has resolved on the left side and is much diminished in size on the right side. Objective Labs 07/07/25 08:25 07/07/25 08:25 Labs: Laboratory Results - last 24 hr 07/07/25 07/07/25 16:14 17:30 Chlamy pneumoniae PCR Not detected Adenovirus (PCR) Not detected B. pertussis DNA (PCR) Not detected B.parapertussis DNA PCR Not detected Coronavirus OC43 (PCR) Not detected Coronavirus HKU1 (PCR) Not detected Coronavirus 229E (PCR) Not detected SARS-CoV-2 (PCR) Negative Not detected Coronavirus NL63 (PCR) Not detected Human Metapneumovir PCR Not detected Influenza A (RT-PCR) Flu a negative Influenza Type A (PCR) Not detected Influenza B (RT-PCR) Flu b negative Influenza Type B (PCR) Not detected M. pneumoniae (PCR) Not detected Parainfluenza 1 (PCR) Not detected Parainfluenza 2 (PCR) Not detected Parainfluenza 3 (PCR) Not detected Parainfluenza 4 (PCR) Not detected RSV (PCR) Not detected Entero/Rhino (PCR) Detected H [facility] Medical History (Updated 07/07/25 @ 18:04 by John Cortes MD) Hypothyroidism Sylvester's thyroiditis Surgical History (Updated 07/07/25 @ 18:02 by John Cortes MD) H/O knee surgery H/O shoulder surgery Family History (Updated 07/07/25 @ 18:04 by John Cortes MD) Father Hyperlipidemia Hypertension Mother Hypothyroidism Breast cancer Thyroid cancer Social History (Updated 07/07/25 @ 18:05 by John Cortes MD) household members: none Smoking Status: Never smoker alcohol intake: current Discharge Plan Discharge Plan Patient Disposition: Home Provider Discharge Comment: Follow up with PCP at [facility] in one week. Discharge orders & Medications Prescriptions: New prednisone 20 mg tablet 40 mg PO DAILY Qty: 10 0RF Continued levothyroxine [Synthroid] 50 mcg tablet 50 mcg PO DAILY Follow up/Referrals: ProviderBandar [Primary Care Provider, Family Practice] Diet/Activity/Treatments Diet: Diet as Tolerated Visit Report/Discharge Packet Stand Alone Forms: Patient Portal/API, Stroke Signs & Symptoms Discharge Data Primary Care Provider: Bandar Jurado Attending Provider: John Cortes Admit Date/Time: 07/07/25 15:32 Quality VTE Deep Vein Thrombosis/Pulmonary Embolism Present on Admission: No
[2025-07-08] MEDS: SODIUM CHLORIDE 0.9% FLUSH 10 ML IV (11:00)
[2025-07-08] MEDS: LEVOTHYROXINE 50 MCG TABLET PO (11:00)
[2025-07-08] MEDS: RACEPINEPHRINE 0.5 ML NEB INH (11:14)
--- NOTE | 2025-07-08 16:34 | PC.NURSE ---
Pt discharged home at 1617, escorted off floor in wheelchair accompanied by hospital staff. IV removed discharge teaching completed including new medications, worsening symptoms and follow up appointments. Patient left the room with all belongings.
== END 2025-07-08 16:45 | disposition home or self-care (01) ==
LOC: ED 10:00 → AC 15:33
PROVIDERS: Admitting Provider Family Medicine; Emergency Provider Emergency Medicine; Referring Provider Emergency Medicine; Visit Provider Family Medicine
DX: J06.9 Acute upper respiratory infection, unspecified (principal); B97.89 Other viral agents as the cause of diseases classified elsewhere; J05.10 Acute epiglottitis without obstruction; R06.1 Stridor; R51.9 Headache, unspecified; E06.3 Autoimmune thyroiditis; M40.40 Postural lordosis, site unspecified
CPT/HCPCS: 36415; 70491; 71045; 80053; 83605; 84703; 85025; 87633; 87635; 94640; 96361; 96374; 96376; 99284; G0378; J1100; J7030; J7613